=== PATIENT | female | born 1955 | race Caucasian/White ===

== ENCOUNTER → 2016-12-05 | Day surgery (SDC) | payer MEDICARE ==
[~2016-12-05] VITALS: Ht 157.5 cm; Wt 50.8 kg
[~2016-12-05] MED LIST: ASPI1TAB PO; CALC1CAP PO; CHILLIQ10 PO; CIPRODEX OTIC SUSP 7.5ML As Ordered ONE; CIPRODEX OTIC SUSP 7.5ML XX ONE; CORT10TA PO; FAMO40TA3 PO; HYDR12.55 PO; IPRASOL4 IN; KPHOS50TA PO; LEVO50TA5 PO; LEVO88TA3 PO; LIDOCAINE 2% INJ 100 MG/5 ML SDV (FOR ANES.) As Ordered ONE; LR 1,000 ML IV SCH; MIDAZOLAM INJ 2 MG/2 ML VIAL (J2250) As Ordered ONE; NORCO, ANEXSIA 5/325MG TABLET (HYDROcodone/ACETAMINOPHEN) PO PRN; OMEP20CA3 PO; ONDANSETRON 4MG/2ML VIAL (J2405) IV PRN; PAME25CA PO; PARO10SS GT; PEG1POW PO; PROPOFOL 200 MG/20 ML VIAL As Ordered ONE; REGL10TA6 PO; ROCA0.25 PO; SYNT125T PEG; TIOT18INH INH; [UNRECOGNIZED DRUG - OTHER] PO; fentaNYL 100 MCG/2 ML INJECTION (J3010) As Ordered ONE
[2016-12-05 17:25] VITALS: BP 100/63
--- NOTE | 2016-12-12 12:24 | RO ---
DATE OF PROCEDURE: 12/05/2016 PREPROCEDURE DIAGNOSIS: Prolonged retention of the tympanostomy tubes. POSTPROCEDURE DIAGNOSIS: Prolonged retention of the tympanostomy tubes. PROCEDURE: Removal of the tympanostomy tubes and bilateral Gelfoam myringoplasty. SURGEON: Dr. Arun Jerome PUMP SERVICER HELPER: ANESTHESIA: General. CLINICAL PREAMBLE: This 61-year-old woman has had tympanostomy tubes placed for hyperbaric oxygen treatment. She has completed her hyperbaric oxygen treatment. She no longer required the use of the tympanostomy tubes. The tubes remained in situ. Management options, including surgery as listed above, had been discussed. The patient understood and consented to the procedure. DESCRIPTION OF PROCEDURE: The patient was identified in preoperative holding and brought to the operating room in stable condition. In supine position on the operating room table, the patient received general anesthesia followed by ventilation via the existing tracheostomy stoma. The patient was turned to the left side to expose the right ear. Ear speculum was inserted. Cerumen was debrided. The tympanostomy tube was visualized and found to be in situ. This was removed under binocular magnification. Upon removal of the tympanostomy tube the edge of the perforation was freshened using curved pick. Gelfoam pieces soaked in Ciprodex solution were then placed into the middle ear cleft. A piece of Gelfoam was then laid over the tympanic membrane perforation. Additional Gelfoam pieces soaked with the Ciprodex were then used to fill the external auditory canal as well. A cotton ball was used to occlude the distal end of the canal. The same procedure was then carried out to remove the left tympanostomy tube as well as performing a left Gelfoam myringoplasty as well. At the end of the procedure, sponge and instrument counts were correct. No complications were encountered. Estimated blood loss was less than 1 mL. General anesthesia was reversed and the patient was awakened and taken to the recovery room in stable condition. KERMIT
== END | disposition home or self-care (01) ==
LOC: M SDC 12:11
PROVIDERS: ATTEND Otolaryngology
DX: H72.93 Unspecified perforation of tympanic membrane, bilateral (principal); H74.8X3 Other specified disorders of middle ear and mastoid, bilateral; E03.9 Hypothyroidism, unspecified; Z92.21 Personal history of antineoplastic chemotherapy; Z92.3 Personal history of irradiation; K44.9 Diaphragmatic hernia without obstruction or gangrene; Z85.819 Personal history of malignant neoplasm of unspecified site of lip, oral cavity, and pharynx; K90.49 Malabsorption due to intolerance, not elsewhere classified; K21.9 Gastro-esophageal reflux disease without esophagitis; T88.4XXD Failed or difficult intubation, subsequent encounter; R29.898 Other symptoms and signs involving the musculoskeletal system; M54.2 Cervicalgia; F41.9 Anxiety disorder, unspecified; Z78.0 Asymptomatic menopausal state; J44.9 Chronic obstructive pulmonary disease, unspecified; Z87.891 Personal history of nicotine dependence; Z79.899 Other long term (current) drug therapy; Z79.82 Long term (current) use of aspirin
CPT/HCPCS: 69610; J2250; J3010

== ENCOUNTER → 2017-02-14 | Outpatient (REF) | payer MEDICARE ==
[~2017-02-14] MED LIST changes: -CIPRODEX OTIC SUSP 7.5ML As Ordered ONE; -CIPRODEX OTIC SUSP 7.5ML XX ONE; -LIDOCAINE 2% INJ 100 MG/5 ML SDV (FOR ANES.) As Ordered ONE; -LR 1,000 ML IV SCH; -MIDAZOLAM INJ 2 MG/2 ML VIAL (J2250) As Ordered ONE; -NORCO, ANEXSIA 5/325MG TABLET (HYDROcodone/ACETAMINOPHEN) PO PRN; -ONDANSETRON 4MG/2ML VIAL (J2405) IV PRN; -PROPOFOL 200 MG/20 ML VIAL As Ordered ONE; -fentaNYL 100 MCG/2 ML INJECTION (J3010) As Ordered ONE
[2017-02-14 13:36] LABS: PERCENT SATURATION 2.9 % (13.2-37.4)
== END ==
LOC: M LAB REF 12:39
PROVIDERS: ATTEND Internal Medicine Medical Oncology
DX: C32.9 Malignant neoplasm of larynx, unspecified (principal); C56.9 Malignant neoplasm of unspecified ovary

== ENCOUNTER → 2017-05-29 | Outpatient (REF) | payer MEDICARE ==
[~2017-05-29] MED LIST changes: +CALC1250 GT; +CALC1SOL GT; +D3 M1CAP2 PO; +FERR220E2 GT; +JUVEPOW8 PO; +MIRA3350 GT; +NEXI1CAP4 GT; +SERT50TA GT; +TRAM50TA2 PO; +TYLE325C GT; +VITA500C10 GT; +VITASPR GT; +[UNRECOGNIZED DRUG - CODE] GT; -[UNRECOGNIZED DRUG - OTHER] PO
[2017-05-29 14:38] LABS: PERCENT SATURATION 14.6 % (13.2-37.4)
[2017-05-30 10:36] LABS: CA 125 45.2 U/ML (<30.2)
== END ==
LOC: M LAB REF 13:17
PROVIDERS: ATTEND Internal Medicine Medical Oncology
DX: C56.9 Malignant neoplasm of unspecified ovary (principal)

== ENCOUNTER 2017-06-11 10:40 | Outpatient (CLI) | payer MEDICARE ==
[~2017-06-11] VITALS: Ht 156.2 cm; Wt 48.1 kg
[~2017-06-11 10:40] MED LIST changes: -CALC1250 GT; -CALC1SOL GT; -FERR220E2 GT; -JUVEPOW8 PO; -MIRA3350 GT; -NEXI1CAP4 GT; -SERT50TA GT; -TRAM50TA2 PO; -TYLE325C GT; -VITA500C10 GT; -VITASPR GT; -[UNRECOGNIZED DRUG - CODE] GT
[2017-06-11] MEDS ORDERED: ZOLEDRONIC ACID 5 MG in APPROPRIATE DILUENT 1 EA IV ONE (11:00)
[2017-06-11] MEDS ORDERED: TYLE325C GT (12:21)
[2017-06-11] MEDS ORDERED: VITA500C10 GT (12:21)
[2017-06-11] MEDS ORDERED: MIRA3350 GT (12:21)
[2017-06-11] MEDS ORDERED: NEXI1CAP4 GT (12:21)
[2017-06-11] MEDS ORDERED: CALC1SOL GT (12:21)
[2017-06-11] MEDS ORDERED: SERT50TA GT (12:21)
[2017-06-11] MEDS ORDERED: CALC1250 GT (12:21)
[2017-06-11] MEDS ORDERED: TRAM50TA2 PO (12:21)
[2017-06-11] MEDS ORDERED: JUVEPOW8 PO (12:21)
[2017-06-11] MEDS ORDERED: VITASPR GT (12:21)
[2017-06-11] MEDS ORDERED: FERR220E2 GT (12:21)
[2017-06-11] MEDS ORDERED: [UNRECOGNIZED DRUG - CODE] GT (12:21)
== END 2017-06-11 12:00 | disposition home or self-care (01) ==
LOC: M INFU 10:40
PROVIDERS: ATTEND Internal Medicine Endocrinology, Diabetes & Metabolism
DX: M81.0 Age-related osteoporosis without current pathological fracture (principal); Z79.899 Other long term (current) drug therapy; Z79.82 Long term (current) use of aspirin; Z79.891 Long term (current) use of opiate analgesic
CPT/HCPCS: 96365; J3489

== ENCOUNTER → 2017-10-15 | Outpatient (REF) | payer MEDICARE ==
[~2017-10-15] MED LIST changes: +CALC1250 PO; +CALC1SOL PO; +FERR220E2 PO; +HYDR5TAB59 PO; +JUVEPOW8 PO; +LEVO100T5 PO; +MIRA3350 GT; +NEXI1CAP4 GT; +SERT50TA GT; +SUCR1SS PO; +TRAM50TA2 PO; +TYLE325C GT; +VITA500C10 GT; +VITASPR PO; +ZEGE20CA4 PO; +[UNRECOGNIZED DRUG - CODE] GT
== END ==
LOC: M LAB REF 12:12
PROVIDERS: ATTEND Internal Medicine Medical Oncology
DX: C32.9 Malignant neoplasm of larynx, unspecified (principal); C79.60 Secondary malignant neoplasm of unspecified ovary

== ENCOUNTER 2017-10-18 09:15 | Emergency (ER) | payer MEDICARE ==
[~2017-10-18] VITALS: Ht 160 cm; Wt 54.3 kg
[~2017-10-18 09:15] MED LIST changes: -HYDR5TAB59 PO; -LEVO100T5 PO; -SUCR1SS PO; -ZEGE20CA4 PO
[2017-10-18] MEDS ORDERED: ONDANSETRON 4MG/2ML VIAL (J2405) As Ordered ONE (09:31)
[2017-10-18] MEDS ORDERED: HYDR5TAB59 PO (09:37)
[2017-10-18] MEDS ORDERED: LEVO100T5 PO (09:37)
[2017-10-18] MEDS ORDERED: SUCR1SS PO (09:37)
[2017-10-18] MEDS ORDERED: ZEGE20CA4 PO (09:37)
[2017-10-18] MEDS ORDERED: ONDANSETRON 4MG/2ML VIAL (J2405) IV ONE (10:30)
[2017-10-18] MEDS ORDERED: MORPHINE 4 MG/ML 1ML SYRINGE IV ONE ×2 (10:30→16:45)
[2017-10-18] MEDS ORDERED: NS 1,000 ML IV ONE (10:30)
[2017-10-18 10:35] LABS: BASO % 0.3 % (0.0-1.0); EOS # 0.1 10^3/uL (0.0-0.50); EOS % 0.5 % (0.0-3.0); IMMATURE GRANULOCYTE % 0.5 % (0-0); LYMPH # 0.7 10^3/uL (1.5-4.5); LYMPH % 4.6 % (24.0-44.0); MEAN CORPUSCULAR HEMOGLOBIN 30.6 pg (27.0-33.0); MEAN CORPUSCULAR VOLUME 95.8 fl (80.0-96.0); MONO # 1.1 10^3/uL (0.0-0.8); MONO % 7.1 % (0.0-5.0); PLATELET COUNT, AUTOMATED 327 10^3/uL (150-450); RED CELL DISTRIBUTION WIDTH 14.2 % (11.5-14.5); WHITE BLOOD COUNT 14.9 10^3/uL (4.0-10.0)
[2017-10-18 10:56] LABS: ERYTHROCYTE SEDIMENTATION RATE 68 mm/hr (0-30)
[2017-10-18 11:07] LABS: ALBUMIN 2.9 GM/DL (3.2-5.2); ALBUMIN/GLOBULIN RATIO 0.59 (1.00-1.93); ALKALINE PHOSPHATASE 80 U/L (45-117); ALT/SGPT 29 U/L (12-78); ANION GAP 7 MEQ/L (8-16); AST/SGOT 21 U/L (7-37); BILIRUBIN,DIRECT 0.1 MG/DL (0.0-0.2); BILIRUBIN,TOTAL 0.4 MG/DL (0.2-1.0); BLOOD UREA NITROGEN 16 MG/DL (7-18); CARBON DIOXIDE LEVEL 32 MEQ/L (21-32); CHLORIDE LEVEL 96 MEQ/L (98-107); CREATININE FOR GFR 0.82 MG/DL (0.55-1.02); GLOMERULAR FILTRATION RATE > 60.0 (>45); GLUCOSE, FASTING 93 MG/DL (80-110); POTASSIUM SERUM 3.6 MEQ/L (3.5-5.1); SODIUM LEVEL 135 MEQ/L (136-145); TOTAL PROTEIN 7.8 GM/DL (6.4-8.2)
[2017-10-18] MEDS ORDERED: ISOVUE-370 76% 100ML VIAL (Q9967) As Ordered ONE (11:13)
--- NOTE | 2017-10-18 12:45 | REP ---
CT NECK WITH CONTRAST: HISTORY: Right neck mass. CONTRAST: Isovue-370, 100 mL. COMPARISON: 08/25/2015 The patient is status post total laryngectomy and bilateral neck dissection and thyroidectomy. A tracheostomy defect is present. A large irregular mass is present at the level of the pharynx and larynx. Soft tissue density is present in the carotid spaces. This may represent extension of the soft tissue mass into the carotid spaces. This may represent extension of the soft tissue mass into the carotid spaces or scar tissue. There is anterior extension into the subcutaneous tissues. A large anterior soft tissue component is present in the anterior subcutaneous tissues . This extends from the level of the inferior margin of the mandible inferior to the anterior chest wall to the level of the tracheostomy superior and anterior to the right clavicle . There is no lymphadenopathy. There are nonacute compression fractures of the C4 through C6 vertebral bodies with mild to moderate height loss. The vertebral bodies are sclerotic and heterogeneous in density consistent with metastases. There is no subluxation. There is loss of the normal lordotic curve. Parenchymal densities are present in the right lung apex. The sinuses are clear. IMPRESSION: 1. The patient is status post total laryngectomy, bilateral neck dissection, thyroidectomy and tracheostomy. A large soft tissue mass is present at the level of the pharynx and larynx. There is anterior extension into the anterior subcutaneous tissue. This extends from the level of the inferior margin of the mandible along the anterior chest wall superior and anterior to the right clavicle. There is marked narrowing of the airway. 2. There are pathologic fractures of the C4 through C6 vertebral bodies. There is mild to moderate height loss. There is no subluxation. Signed by Joss Zimmer MD 10/18/2017 01:55 P
--- NOTE | 2017-10-18 13:18 | REP ---
CT CHEST WITH CONTRAST: HISTORY: Right neck mass. CONTRAST: Isovue-370, 75 mL COMPARISON: 06/03/2014 The lungs are hyperinflated. Scarring is present in the lung apices. A calcified granuloma is present in the right lower lobe. There is no pleural effusion. The heart is normal in size. Small lymph nodes less than 1 cm in size are present in the mediastinum. Atherosclerotic calcification is present in the thoracic aorta. A soft tissue mass is present in the midline anterior subcutaneous tissue of the lower neck. There is inferior extension along the anterior chest wall superior and anterior to the right clavicle. A tracheostomy is present. Degenerative change is present in the thoracic spine. A feeding tube is present in the stomach entering through the anterior abdominal wall. IMPRESSION: 1. COPD. 2. There is an anterior lower neck and right anterior chest wall mass as described above consistent with recurrent tumor. Signed by Joss Zimmer MD 10/18/2017 01:49 P
[2017-10-18] MEDS ORDERED: MORPHINE 4 MG/ML 1ML SYRINGE IM ONE (16:30)
[2017-10-18] MEDS ORDERED: PERCOCET 5MG/325MG TAB PO ONE (16:30)
[2017-10-18 16:55] VITALS: BP 99/58
== END 2017-10-18 16:58 | disposition left against medical advice (07) ==
LOC: M ED 09:15
DX: M84.58XA Pathological fracture in neoplastic disease, other specified site, initial encounter for fracture (principal); R22.1 Localized swelling, mass and lump, neck; I10 Essential (primary) hypertension; Z85.43 Personal history of malignant neoplasm of ovary; Z90.02 Acquired absence of larynx; Z90.89 Acquired absence of other organs; E07.9 Disorder of thyroid, unspecified; Z93.0 Tracheostomy status; J44.9 Chronic obstructive pulmonary disease, unspecified; Z93.1 Gastrostomy status; F41.9 Anxiety disorder, unspecified; G47.33 Obstructive sleep apnea (adult) (pediatric); Z87.891 Personal history of nicotine dependence; Z79.899 Other long term (current) drug therapy; Z79.82 Long term (current) use of aspirin
CPT/HCPCS: 70491; 71260; 80048; 80076; 83605; 85025; 85652; 86140; 96374; 96375; 96376; 99284; J2405; Q9967

== ENCOUNTER 2018-07-06 14:24 | Outpatient (CLI) | payer MEDICARE ==
[2018-07-06] MEDS: ZOLEDRONIC ACID 5 MG in APPROPRIATE DILUENT 1 EA IV (14:47)
== END 2018-07-06 15:25 | disposition home or self-care (01) ==
LOC: M INFU 14:24
DX: M81.0 Age-related osteoporosis without current pathological fracture (principal); Z79.82 Long term (current) use of aspirin; Z79.899 Other long term (current) drug therapy
CPT/HCPCS: J3489

== ENCOUNTER → 2018-12-15 | Outpatient (CLI) | payer MEDICARE ==
[~2018-12-15] MED LIST changes: +BUPR75TA5 PO; -FERR220E2 PO; +FERR220L PO; +HYDR5TAB59 PO; +IPRA0.00 IN; -IPRASOL4 IN; +LEVO100T5 PO; +SUCR1SS PO; +ZEGE20CA4 PO
--- NOTE | 2018-12-15 18:50 | REP ---
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 Status post chemo and radiation therapy. Completed September 2010. and 2014 prompted laryngectomy and diverting pharyngotomy and esophagectomy. There is also a prior history of ovarian carcinoma. Status post cervical spine surgery stabilization for osteomyelitis of the cervical spine C4-C6 fusion. [facility] CT study November 03, 2018 is reported as showing subcarinal and right hilar lymph nodes measuring up to 1.8 cm in greatest diameter. Comparisons: Comparison PET-CT study July 20, 2015. TECHNIQUE: 54 minutes following the intravenous injection of a 7.9 mCi dose of F-18 FDG, three-dimensional PET scintigraphy is acquired from the skull base to the proximal thighs. Triplanar noncontrast CT scanning is acquired through the same anatomic range for attenuation correction, and image registration with scan parameters optimized to minimize radiation exposure to the patient. PET scintigraphy and CT datasets were fused and displayed on a workstation with multiplanar and projection display capability. PET/CT Findings: There is fairly prominent normal variant skeletal muscle uptake about the head and neck soft tissues. There is mildly hypermetabolic uptake surrounding the hypopharynx in the neck with maximum standard uptake value 5.5. There is no evidence of mass effect. No adenopathy is seen. No abnormal hypermetabolic uptake is seen within the thorax. There is mildly hypermetabolic uptake associated with right posterior 11th and 10th rib fractures, which appear to be recent. Maximum standard uptake value is 4.1 and 4.4 in the tenth and eleventh ribs respectively. There are sclerotic changes consistent with healing fractures involving the anterior ends of the 5th through 9th lateral rib ends as well. No abnormal FDG accumulation is seen in these anterolateral healed rib fractures. No abnormal hypermetabolic uptake is seen within the liver. No adrenal lesion is observed. A feeding gastrostomy tube is noted. No abnormal abdominal hypermetabolic uptake is seen. A focus of increased FDG accumulation is seen in the anus. This was observed on multiple prior PET-CTs including 2014 and 2013 prior studies and is unchanged. No pulmonary nodule is seen. No abnormal FDG uptake is seen within the subcarinal or right hilar or left hilar region. Impression: Mildly hypermetabolic uptake in the hypopharynx which may be postsurgical change. No mass effect or adenopathy is seen. Multiple right-sided rib fractures noted including two recent posterior rib fractures on the right. No abnormal hypermetabolic uptake is seen in the chest. Electronically Signed by Marcos Fisher MD 12/16/2018 08:03 A
== END ==
LOC: M PLARAD 08:15
PROVIDERS: ATTEND Internal Medicine Hematology & Oncology
DX: R91.1 Solitary pulmonary nodule (principal); C32.9 Malignant neoplasm of larynx, unspecified; S22.41XA Multiple fractures of ribs, right side, initial encounter for closed fracture; X58.XXXA Exposure to other specified factors, initial encounter; Y92.9 Unspecified place or not applicable; Z93.1 Gastrostomy status
CPT/HCPCS: 78815; A9552

== ENCOUNTER 2019-01-29 16:29 | Inpatient (IN) | payer MEDICARE ==
[~2019-01-29] VITALS: Ht 154.9 cm; Wt 52.0 kg
[~2019-01-29 16:29] MED LIST changes: -VITA500C10 GT; +VITA500C10 PO
[2019-01-29 22:15] VITALS: BP 126/75
[2019-01-29] MEDS ORDERED: ONDANSETRON 4MG/2ML VIAL (J2405) IV PRN (23:00)
[2019-01-29] MEDS ORDERED: GLUCOSE 4 GM CHEW TABLET PO PRN (23:15)
[2019-01-29] MEDS ORDERED: GLUCAGON FOR INJ 1 MG VIAL (J1610) SC PRN (23:15)
[2019-01-29] MEDS ORDERED: IPRATROPIUM 0.5MG/ALBUTEROL 2.5MG INH SOL UD 3ML (DUONEB)(J7620) NEB PRN (23:15)
[2019-01-29] MEDS ORDERED: DEXTROSE 50% 50 ML SYRINGE IV PRN (23:15)
[2019-01-30 00:01] LABS: HEMATOCRIT 33.3 % (36.0-47.0); HEMOGLOBIN 10.3 g/dl (12.0-15.5); MEAN CORPUSCULAR HEMOGLOBIN 27.1 pg (27.0-33.0); MEAN CORPUSCULAR HGB CONC 30.9 g/dl (32.0-36.5); MEAN CORPUSCULAR VOLUME 87.6 fl (80.0-96.0); PLATELET COUNT, AUTOMATED 278 10^3/uL (150-450); WHITE BLOOD COUNT 9.4 10^3/uL (4.0-10.0)
[2019-01-30 00:15] LABS: INR 1.44; PROTHROMBIN TIME 17.8 SECONDS (12.1-14.4)
[2019-01-30 00:16] LABS: PARTIAL THROMBOPLASTIN TIME 28.9 SECONDS (25.4-37.6)
[2019-01-30] MEDS ORDERED: CYCL10TA PO (00:16)
[2019-01-30] MEDS ORDERED: CALC1CAP31 PO (00:16)
[2019-01-30] MEDS ORDERED: ACET1TAB55 PO (00:29)
[2019-01-30] MEDS ORDERED: CALC500C16 PO (00:29)
[2019-01-30] MEDS ORDERED: AMIT50TA PO (00:29)
[2019-01-30] MEDS ORDERED: OMEP20CA3 PO (00:37)
[2019-01-30] MEDS ORDERED: ISOVUE-370 76% 125ML VIAL (Q9967 PER ML) As Ordered ONE (00:38)
[2019-01-30 00:41] LABS: ERYTHROCYTE SEDIMENTATION RATE 65 mm/hr (0-30)
[2019-01-30] MEDS ORDERED: MIRA3350 PO (00:43)
[2019-01-30] MEDS ORDERED: VITA100066 PO (00:43)
[2019-01-30] MEDS ORDERED: SUCR1TAB56 PO (00:47)
[2019-01-30] MEDS ORDERED: [UNRECOGNIZED DRUG - CODE] PO (00:47)
--- NOTE | 2019-01-30 00:47 | HPE ---
DATE OF ADMISSION: 01/29/2019 The patient was transferred from [facility] for neurosurgical as well as hematology/oncology evaluation with back pain, hip pain radiating into the legs, questionable lower extremity weakness, for evaluation for possible osteomyelitis, stress fracture versus possible metastasis (mets). HISTORY OF THE PRESENT ILLNESS: The patient is a 64-year-old female. She has significant past medical history of laryngeal cancer. She is status post chemo, radiation, surgery, status post trach now with a stoma, also percutaneous endoscopic gastrostomy (PEG), she takes orally. She had a skin graft as well as muscle harvested from her leg to create what appears to be a portion of the trachea; it is unclear what exactly was harvested and what was created. She also has ovarian cancer - status post oophorectomy. She has chronic obstructive pulmonary disease (COPD), asthma. She has a stoma, no longer trached; however, she is not on any oxygen at home. She has gastroesophageal reflux disease (GERD), hypothyroidism, depression, anxiety. She presented to the emergency room at [facility] with sacral back pain as well as bilateral hip pain radiating down the legs. The patient complained of difficulty getting out of bed. It is unclear whether or not her difficulty was due to weakness or due to the pain. However, at this point in time, her strength seems to be intact. She has no bowel or urinary incontinence, no saddle anesthesia. An MRI was completed at [facility], MRI of the pelvis as well as MRI of the L-spine. MRI of the pelvis showed L4-L5 disc herniation and edema in the bone marrow of the sacrum, some soft tissue swelling concerning for osteomyelitis versus stress fracture versus mets. MRI of the L-spine showed a herniated disc at L4-L5, edema of the presacral area, some soft tissue swelling with a concern for osteomyelitis versus stress fracture versus mets, and the patient is following with hematology/oncology, Dr. Rosario, at [facility]. Patient subsequently transferred for orthopedic surgery as well as hematology/oncology evaluation. She was started on Decadron. Again, she was initially at [facility], transferred to [facility] and subsequently transferred to [facility] because her oncologist practices at [facility], Dr. Rosario. She was started on vancomycin and Zosyn empirically for osteomyelitis. She was started on Decadron empirically in case this is mets with compressive symptoms. Currently, the patient examined at bedside. She denies any chest pain, cough, shortness of breath, fevers, chills, urinary symptoms, diarrhea, constipation. Her back pain has since improved. She has no point tenderness in the back. Power and sensation in the lower extremities appear to be intact. PAST MEDICAL HISTORY: See history of the present illness. PAST SURGICAL HISTORY: She had cervical spine surgery. She had oophorectomy. She had skin graft as well as harvest of the muscles of the leg. She had laryngectomy. Status post chemo and radiation. She has a PEG in place. ALLERGIES: No known drug allergies. HOME MEDICATIONS: As per chart, includes DuoNebs, omeprazole, Hickory, Synthroid, Wellbutrin, hydrocortisone cream - the reason unclear. SOCIAL HISTORY: She is a former smoker. Denies alcohol or illicit drug use. FAMILY HISTORY: Noncontributory. REVIEW OF SYSTEMS: A 12-point review of systems was completed, all of which were negative except those listed in the history of the present illness. VITAL SIGNS ON ADMISSION: She is afebrile. Blood pressure 126/75, respiratory rate of 18, heart rate of 67. She was initially saturating in the 90s on room air, subsequently desaturated to the 80s and was placed on five liters nasal cannula. PHYSICAL EXAM: General: She is well nourished, in no apparent distress. Head is normocephalic, atraumatic Eyes: Extraocular movements are intact. Pupils equal, round, reactive to light. Neck: There is a deviated trachea, which appears to have been created from grafted tissue, a stoma in place, trach has been removed. Lungs: Clear to auscultation. No crackles, wheezes. Cardiovascular: Regular rate and rhythm. Normal S1, S2. Abdomen: The abdomen is soft. PEG site is clean, clear. Extremities: No pitting edema. No calf tenderness. Skin: Intact. No rashes, lesions, or breakdown. Neurological: Alert and oriented times three. No focal deficits. Sensation and power appear to be intact. LABS AND IMAGING: Completed at outside facility. Sodium of 136, BUN and creatinine of 25 over 0.9, platelet count of 255, white count 5, hemoglobin 11. Imaging performed at an outside facility: MRI of the pelvis shows disc herniation at L4-L5, edema in the sacrum with marrow edema from soft tissue swelling, edema from the left to the right. Differential includes osteomyelitis versus stress fracture versus possible mets. MRI of the lumbar spine shows disc herniation L4-L5, as well as presacral swelling. CT of the abdomen and pelvis shows nonobstructing calculus and a full bladder. Chest x-ray showed b/l small effusions. ASSESSMENT AND PLAN: Hip pain, back pain, questionable lower extremity weakness. This is possibly more than likely secondary to pain and my neurological exam shows power and sensation intact. Differential includes osteomyelitis versus mass concerning for mets versus stress fracture. Will get orthopedic (ortho) consult. Will get bone scan to assess for osteomyelitis. The MRI was unable to definitively diagnose osteomyelitis. Will get ESR, CRP, blood cultures. Will continue vancomycin, Zosyn as per outside facility. Will get orthopedic consult, Dr. Holder. Patient may likely need bone biopsy for definitive diagnosis of presacral mass, soft tissue swelling. Will continue Decadron, insulin sliding scale while on high dose steroids. Please get hematology/oncology evaluation in the morning. Will continue Hickory as needed for pain. For hypoxia, the etiology is unclear. Will get a CT angio of the chest to rule out any malignancy or infectious process that could have been a possible spread for osteomyelitis. Will also get a urinalysis (UA). Will also rule out pulmonary embolism (PE). Will continue oxygen as needed. History of laryngeal cancer, status post trach which was removed, now with stoma stoma, PEG, patient now takes orally. Continue oxygen as needed. Keep oxygen saturation greater than 94%. Will place the patient on DuoNebs. She is already on Decadron. Acid reflux. Continue omeprazole. DuoNebs standing. Hypothyroidism. Continue Synthroid. Mood disorder. Continue Wellbutrin. The patient also uses viscous lidocaine and hydrocortisone for which she states is to dilate her throat, the reason unclear, which she takes orally. Will continue this. Supportive: Deep vein thrombosis (DVT) prophylaxis. Heparin subcu. Gastrointestinal (GI) prophylaxis. The patient is already on omeprazole. The patient is to be seen by the personnel psychologist/oncologist as well as the orthopedic surgeon in the morning. Will get basic labs, CBC, BMP, TSH, ESR, CRP, blood cultures, magnesium, troponin, lactate. MTDD
[2019-01-30 01:00] LABS: ALBUMIN 2.5 GM/DL (3.2-5.2); ALT/SGPT 39 U/L (12-78); BILIRUBIN,TOTAL 0.3 MG/DL (0.2-1.0); BLOOD UREA NITROGEN 20 MG/DL (7-18); CARBON DIOXIDE LEVEL 22 MEQ/L (21-32); CHLORIDE LEVEL 117 MEQ/L (98-107); CREATININE FOR GFR 1.03 MG/DL (0.55-1.30); GLOMERULAR FILTRATION RATE 57.3 (>45); GLUCOSE, FASTING 109 MG/DL (70-100); POTASSIUM SERUM 4.1 MEQ/L (3.5-5.1); SODIUM LEVEL 145 MEQ/L (136-145); THYROID STIMULATING HORMONE 0.136 uIU/ML (0.358-3.740); TROPONIN I < 0.02 NG/ML (< 0.10)
[2019-01-30] MEDS ORDERED: HYDR1SOL PO ×3 (01:01→01:09)
[2019-01-30] MEDS: MORPHINE 4 MG/ML 1ML VIAL/SYRINGE (J2270) IV PRN ×6 (01:04→23:31)
[2019-01-30] MEDS ORDERED: IPRA0.00 NEB (01:05)
[2019-01-30] MEDS: HumaLOG INSULIN (NovoLOG) PER UNIT SC SCH ×5 (01:05→23:59)
[2019-01-30] MEDS ORDERED: HYDR1CRE89 TOP (01:15)
[2019-01-30] MEDS ORDERED: LIDO2JELLY TOP (01:18)
[2019-01-30] MEDS ORDERED: NS 1,000 ML IV SCH (01:30)
[2019-01-30 02:00] VITALS: BP 152/81
[2019-01-30] MEDS: PIPERACILLIN/TAZOBACTAM SOD 3.375 GM in D5W MINI-BAG PLUS 50 ML IV SCH ×3 (02:14→18:35)
[2019-01-30] MEDS: dexameTHASONE 4 MG/ML 1ML VIAL (J1100) IV SCH ×3 (02:15→18:21)
[2019-01-30] MEDS ORDERED: MIRALAX *UNIT DOSE* 17GM PACKET PO PRN (03:00)
--- NOTE | 2019-01-30 03:09 | REPVR ---
EXAM: CT Angiography Chest With Contrast EXAM DATE/TIME: 01/29/2019 11:34 PM CLINICAL HISTORY: 64 years old, female; Signs and symptoms; Shortness of breath; Additional info: Hypoxia TECHNIQUE: Axial computed tomographic angiography images of the chest with intravenous contrast using CT angiography protocol. All CT scans at this facility use at least one of these dose optimization techniques: automated exposure control; mA and/or kV adjustment per patient size (includes targeted exams where dose is matched to clinical indication); or iterative reconstruction. Coronal and sagittal reformatted images were created and reviewed. MIP reconstructed images were created and reviewed. CONTRAST: Contrast Material: 75 ml of iso; Contrast Route: ac COMPARISON: CT ANGIO CHEST - OUTSIDE PRIOR 11/03/2018 5:05 PM FINDINGS: Pulmonary arteries: Normal. No pulmonary emboli. Aorta: Normal. No aortic aneurysm. No aortic dissection. Lungs: Large fecal loading in the visualized lungs. Bibasilar consolidations likely atelectasis.Mild bilateral ground glass densities likely edema. Pleural space: Small bilateral pleural effusions. Heart: Mild coronary calcifications. Gallbladder and bile ducts: Distended gallbladder without any gallstones. Kidneys and ureters: Simple cyst in the right kidney measuring 12 mm. Stomach and bowel: PEG tube in place. Atherosclerosis. Lymph nodes: Unremarkable. No enlarged lymph nodes. Bones/joints: Old healed right posterior 11th and 10th ribs fractures. Degenerative changes. Old compression fracture of T8 similar to previous study. Posterior disc osteophyte formation at T8/T9 causing mild central spinal canal stenosis. Soft tissues: Unremarkable. IMPRESSION: 1. No evidence of pulmonary embolism. 2. Small bilateral pleural effusions, bibasilar consolidations likely atelectasis versus pneumonia and diffuse edema of the lungs. Electronically signed by: Sherri Joiner On 01/30/2019 03:08:55 AM
[2019-01-30 03:11] LABS: VANCOMYCIN LEVEL TROUGH 14.4 UG/ML (10.0-20.0)
--- NOTE | 2019-01-30 03:24 | PHACANCOPD ---
PHARMACY VANCOMYCIN DOSING Pt Demographics Demographics Patient Age:64 , Weight:52.000 , Gender: female Adjusted Body Weight Date: 01/30/19, Adjusted Body Weight: Kg Events Past 24 Hours Events Past 24 Hours: NO: Dialysis, Diuretic Therapy, Change in CrCl, Fever, Elevation in WBC, Pending Diagnostics, Pending Procedures, Other Vancomycin Vancomycin Target Ranges: 15-20 mcg/ml Vancomycin Load Y/N: No Load Dose Date Time Vancomycin Load Dose: Date: Time: Vancomycin Dose Date: 01/30/19. Current Vancomycin Dose: [1000mg q12h] Intermittent Dosing?: No Labs Labs Item Value Date Time White Blood Count 9.4 10^3/uL 01/29/194 Glomerular Filtration Rate 57.3 01/29/194 Creatinine 1.03 MG/DL 01/29/192353 Blood Urea Nitrogen 20 MG/DL H 01/29/19 235 Vancomycin Level Trough 14.4 UG/ML 01/29/19 235 Vital Signs Label Value Date Time Patient Temperature 98.1 degrees F 01/30/19 0200 Temperature Source Temporal 01/30/19 0200 Micro Microbiology 01/29/19 Blood Culture, Received Pending Creatinine Clearance Date:01/30/19. Creatinine Clearance: [~44]. Pending Labs Trough 03-16 @1500 Assessment and Plan Maintaining Current Dose?: Yes Reason for dose change: No Dose Change Pharmacist Note Pharmacist Note Date: 01/30/19. Pharmacist note:Patient started on vancomycin at [facility]. Will monitor and make adjustments as needed. DWAYNE FORD [facility]ARMAC[facility] Jan 30, 2019 03:24
[2019-01-30] MEDS: VANCOMYCIN HCL 1,000 MG, VIAL MATE ADAPTER 1 EACH in D5W 250 ML IV SCH ×2 (04:31→16:08)
[2019-01-30] MEDS: AMITRIPTYLINE 50 MG TAB PO SCH ×2 (04:32→20:53)
[2019-01-30] MEDS: LEVOTHYROXINE 100MCG TABLET (0.1MG) PO SCH (05:46)
[2019-01-30] MEDS: HEPARIN SOD (PORCINE) 5000 UNITS/ML VIAL SC SCH ×3 (05:46→20:53)
[2019-01-30 06:00] VITALS: BP 168/93
[2019-01-30 07:07] LABS: HEMATOCRIT 34.7 % (36.0-47.0); HEMOGLOBIN 10.3 g/dl (12.0-15.5); MEAN CORPUSCULAR HEMOGLOBIN 26.5 pg (27.0-33.0); MEAN CORPUSCULAR HGB CONC 29.7 g/dl (32.0-36.5); MEAN CORPUSCULAR VOLUME 89.2 fl (80.0-96.0); PLATELET COUNT, AUTOMATED 286 10^3/uL (150-450); RED BLOOD COUNT 3.89 10^6/uL (4.00-5.40); WHITE BLOOD COUNT 10.3 10^3/uL (4.0-10.0)
[2019-01-30 07:33] LABS: BLOOD UREA NITROGEN 21 MG/DL (7-18); CALCIUM LEVEL 6.4 MG/DL (8.8-10.2); CARBON DIOXIDE LEVEL 19 MEQ/L (21-32); CHLORIDE LEVEL 114 MEQ/L (98-107); CREATININE FOR GFR 0.95 MG/DL (0.55-1.30); GLOMERULAR FILTRATION RATE > 60.0 (>45); GLUCOSE, FASTING 108 MG/DL (70-100); SODIUM LEVEL 142 MEQ/L (136-145)
[2019-01-30] MEDS: CALCITRIOL 0.25 MCG CAP (S0169) PO SCH ×2 (09:00→09:14)
[2019-01-30] MEDS ORDERED: ASPIRIN 81 MG ENTERIC TAB PO SCH (09:00)
[2019-01-30] MEDS: ASCORBIC ACID 500 MG TAB PO SCH ×4 (09:00→16:08)
[2019-01-30] MEDS: SUCRALFATE 1 GM TAB PO SCH ×4 (09:13→20:53)
[2019-01-30] MEDS: OMEPRAZOLE 20 MG CAP PO SCH (09:13)
[2019-01-30] MEDS: VITAMIN D 1,000 INTERNATIONAL UNITS TABLET PO SCH (09:14)
[2019-01-30 10:00] VITALS: BP 91/57
[2019-01-30 10:05] VITALS: BP 110/90
[2019-01-30] MEDS: buPROPion 75 MG TAB PO SCH ×2 (10:11→20:52)
[2019-01-30 14:00] VITALS: BP 124/73
[2019-01-30 17:49] LABS: FREE T4 1.06 NG/DL (0.76-1.46)
[2019-01-30] MEDS ORDERED: POTASSIUM CHLORIDE 10 MEQ SR TABLET PO ONE (19:45)
[2019-01-30] MEDS ORDERED: POTASSIUM CHLORIDE 10% LIQ 20 MEQ/15 ML UDC PO ONE (19:45)
[2019-01-30 22:00] VITALS: BP 130/73
--- NOTE | 2019-01-30 23:14 | IPN ---
DATE: 01/30/2019 SUBJECTIVE: Patient seen and examined in the room today. Patient continues to complain about persistent bilateral hip pain and sacral pain. Patient also complaining about shooting pain radiating from the back to the lower extremities. Denied any loss of sensation of the lower extremities and pelvic area. Denied any fevers or chills. OBJECTIVE: VITAL SIGNS: Temperature is 98.3, pulse is 68, respirations 18, blood pressure is 168/93, pulse oximetry is 98% with 5 liters oxygen support. GENERAL: Patient is alert and awake, nonverbal. Communication is performed through writing. HEENT: Tracheal stoma noted in place. CARDIOVASCULAR: Positive S1, S2, regular rate. LUNGS: Clear to auscultation bilaterally. ABDOMEN: Percutaneous endoscopic gastrostomy (PEG) tube in place. Abdomen soft. MUSCULOSKELETAL: Patient was noted to have musculoskeletal deformity on the left upper chest and in the neck area. Tender to palpation on the lower back region. LABORATORY DATA: WBC 10.3, hemoglobin 10.3, hematocrit 34.7, platelet count is 286. Sodium 142, potassium 3, chloride 114, carbon dioxide 19, BUN 21, creatinine 0.95, GFR greater than 60, fasting glucose 108, calcium 6.4, magnesium 2. Free T4 is 1.06. CT angiogram of the chest demonstrated no evidence of pulmonary embolism (PE). Small bilateral pleural effusions, bibasilar consolidation, likely atelectasis versus pneumonia and diffuse edema of the lungs. ASSESSMENT AND PLAN: 1. Acute onset of bilateral hip pain and sacral pain with radiation to the lower extremities. Imaging was done previously in another facility. Findings suggestive of possible osteomyelitis, stress fracture versus possible metastasis. We are unfortunately unable to obtain the PET scan at this moment. Orthopedic team consulted. Patient did have (cut off) performed on 12/15/2018, and results are reviewed. Patient does have a history of osteomyelitis of the neck region, resulting in cervical spine surgery. 2. History of laryngeal cancer and ovarian cancer, status post chemoradiation therapy, status post tracheostomy, now with a stoma. Percutaneous endoscopic gastrostomy (PEG) tube in place. Patient had a skin graft and muscle harvesting for tracheal reconstruction. Patient also had an oophorectomy. Currently, patient is following with Dr. Cummins in the outpatient setting. 3. Hypothyroidism, on Synthroid. 4. Anxiety/depression, on Wellbutrin, amitriptyline. Continue to monitor. 5. Deep vein thrombosis (DVT) prophylaxis, on heparin.
[2019-01-31] MEDS: PIPERACILLIN/TAZOBACTAM SOD 3.375 GM in D5W MINI-BAG PLUS 50 ML IV SCH ×2 (02:44→10:12)
[2019-01-31] MEDS: dexameTHASONE 4 MG/ML 1ML VIAL (J1100) IV SCH ×3 (02:44→18:28)
[2019-01-31] MEDS: VANCOMYCIN HCL 1,000 MG, VIAL MATE ADAPTER 1 EACH in D5W 250 ML IV SCH ×2 (04:15→15:57)
[2019-01-31] MEDS: LEVOTHYROXINE 100MCG TABLET (0.1MG) PO SCH (05:02)
[2019-01-31] MEDS: HEPARIN SOD (PORCINE) 5000 UNITS/ML VIAL SC SCH ×3 (05:02→22:28)
[2019-01-31] MEDS: HumaLOG INSULIN (NovoLOG) PER UNIT SC SCH ×3 (05:12→19:00)
[2019-01-31 06:00] VITALS: BP 138/99
[2019-01-31] MEDS: MORPHINE 4 MG/ML 1ML VIAL/SYRINGE (J2270) IV PRN ×4 (06:35→20:35)
[2019-01-31 07:48] LABS: HEMATOCRIT 33.9 % (36.0-47.0); HEMOGLOBIN 10.5 g/dl (12.0-15.5); MEAN CORPUSCULAR HEMOGLOBIN 26.7 pg (27.0-33.0); MEAN CORPUSCULAR VOLUME 86.3 fl (80.0-96.0); PLATELET COUNT, AUTOMATED 343 10^3/uL (150-450); RED BLOOD COUNT 3.93 10^6/uL (4.00-5.40); WHITE BLOOD COUNT 8.7 10^3/uL (4.0-10.0)
[2019-01-31 08:22] LABS: BLOOD UREA NITROGEN 19 MG/DL (7-18); C REACTIVE PROTEIN QUANTITATIV 2.36 MG/DL (0.00-0.30); CALCIUM LEVEL 6.5 MG/DL (8.8-10.2); CARBON DIOXIDE LEVEL 23 MEQ/L (21-32); CHLORIDE LEVEL 113 MEQ/L (98-107); CREATININE FOR GFR 0.94 MG/DL (0.55-1.30); GLOMERULAR FILTRATION RATE > 60.0 (>45); GLUCOSE, FASTING 55 MG/DL (70-100); POTASSIUM SERUM 3.8 MEQ/L (3.5-5.1); SODIUM LEVEL 142 MEQ/L (136-145)
[2019-01-31] MEDS: CALCITRIOL 0.25 MCG CAP (S0169) PO SCH (09:00)
[2019-01-31] MEDS: ASPIRIN 81 MG CHEW TABLET PO SCH (09:41)
[2019-01-31] MEDS: SUCRALFATE 1 GM TAB PO SCH ×4 (09:41→20:19)
[2019-01-31] MEDS: buPROPion 75 MG TAB PO SCH ×2 (09:41→20:19)
[2019-01-31] MEDS: VITAMIN D 1,000 INTERNATIONAL UNITS TABLET PO SCH (09:41)
[2019-01-31] MEDS: ASCORBIC ACID 500 MG TAB PO SCH ×3 (09:42→20:19)
[2019-01-31] MEDS: OMEPRAZOLE 20 MG CAP PO SCH (09:42)
[2019-01-31 14:00] VITALS: BP 182/91
--- NOTE | 2019-01-31 14:21 | REP ---
MR CERVICAL SPINE WITHOUT CONTRAST: HISTORY: Cervical spine surgery. COMPARISON: CT neck 10/18/2017. A disc bulge is present at the C3-4 level. There is mild effacement of the thecal sac without spinal cord compression. The C3 neural foramina are patent. The patient is status post C3 to C7 posterior spinal fusion. Metal hardware is present. Bilateral uncinate process hypertrophy is present at the C5-6 level. This produces mild and minimal narrowing of the right and left C5 neural foramina respectively. A disc bulge is present at the C6-7 level. There is minimal effacement of the thecal sac without spinal cord compression. Bilateral uncinate process hypertrophy is present. This produces minimal narrowing of the C6 neural foramina. There is no other disc bulge or herniation. The remaining neural foramina are patent. There are fractures of the C4 through C6 vertebral bodies with mild to moderate height loss. Decreased and mixed iso- and slightly increased signal intensity on T2-weighted images are present in the vertebral bodies. Heterogeneous increased signal intensity is present in the STIR images. This likely represents degenerative change. The C3-4 and C6-7 intervertebral discs are decreased in height consistent with disc degeneration. The spinal cord is normal in signal intensity. There is loss of the normal lordotic curve. Increased kyphosis is present. A 1.3 cm fluid collection with air fluid level is present in the prevertebral soft tissue at C4-5 level. IMPRESSION: 1. The patient is status post C3 to C7 posterior spinal fusion. There is no spinal cord compression. 2. There are compression fractures of the C4 through C6 vertebral bodies with mild to moderate height loss. Increased signal intensity is present in the vertebral bodies. This likely represents degenerative change. 3. There is cervical spondylosis at the C3-4, C5-6, and C6-7 levels. 4. There is a 1.4 cm fluid collection with an air-fluid level in the prevertebral soft tissue at the C4-5 level. An abscess cannot be excluded. Electronically Signed by Joss Zimmer MD 01/31/2019 02:31 P
[2019-01-31] MEDS: NORCO, ANEXSIA 5/325MG TABLET (HYDROcodone/ACETAMINOPHEN) PO PRN ×2 (14:22→22:28)
--- NOTE | 2019-01-31 14:36 | REP ---
CT SACRUM WITHOUT CONTRAST: HISTORY: Fracture. COMPARISON: CT lumbar spine 01/23/2019, MR lumbar spine 01/27/[address] abdomen and pelvis 01/27/2019. There is a fracture of the anterior superior S2 vertebral body. There are bilateral fractures of the S1 and S2 sacral ala. The margins of the sacral ala fractures are slightly sclerotic. There are no other fractures. There is no subluxation. A disc bulge with associated osteophyte formation is present at the L4-5 level. There is hypertrophy of the ligamenta flava and posterior articulating facets. These findings produce moderate central canal stenosis. There is compression of the right L4 nerve in the neural foramen. The left L4 nerve exits the neural foramina without compression. A diffuse disc bulge is present at the L5-S1 level. This abuts the thecal sac. There is hypertrophy of the posterior articulating facets. The L5 nerves exit the neural foramina without compression. IMPRESSION: 1. There are fractures of the anterior superior S2 vertebral body and bilateral S1 and S2 sacral ala. There is no subluxation. 2. Moderate central canal stenosis at the L4-5 level secondary to disc bulge, ligamentous and facet hypertrophy. There is compression of the right L4 nerve in the neural foramen. 3. Diffuse disc bulge at the L5-S1 level. This abuts the thecal sac. Electronically Signed by Joss Zimmer MD 01/31/2019 02:49 P
--- NOTE | 2019-01-31 16:51 | IPNPDOC ---
Text Note Date of Service The patient was seen on 01/31/19. NOTE SUBJECTIVE: Patient is seen and examined in the room today. Patient continues to complain about persistent sacral pain. Sitting still will worsening the pain so she has to move her posture constantly. Denied any loss of sensation of the lower extremities and pelvic area. Denied any fevers or chills. OBJECTIVE: VITAL SIGNS: Listed below. GENERAL: Patient is alert and awake, nonverbal. Communication is performed through writing. HEENT: Tracheal stoma noted in place. CARDIOVASCULAR: Positive S1, S2, regular rate. LUNGS: Clear to auscultation bilaterally. ABDOMEN: Percutaneous endoscopic gastrostomy (PEG) tube in place. Abdomen soft. MUSCULOSKELETAL: Patient was noted to have musculoskeletal deformity on the left upper chest and in the neck area. Tender to palpation on the lower back region. LABORATORY DATA: Listed below. CT angiogram of the chest demonstrated no evidence of pulmonary embolism (PE). Small bilateral pleural effusions, bibasilar consolidation, likely atelectasis versus pneumonia and diffuse edema of the lungs. ASSESSMENT AND PLAN: #. Acute onset of bilateral hip pain and sacral pain with radiation to the lower extremities. - Imagings were done previously in another facility. Findings suggestive of possible osteomyelitis, stress fracture versus possible metastasis. Orthopedic team consulted. Follow up with CT sacrum and MRI of cervical spine. - PET performed on 12/15/2018, and results are reviewed. - Patient does have a history of osteomyelitis of the neck region, resulting in cervical spine surgery. #. History of laryngeal cancer and ovarian cancer, - status post chemoradiation therapy, status post tracheostomy, now with a stom a. Percutaneous endoscopic gastrostomy (PEG) tube in place. Patient had a skin graft and muscle harvesting for tracheal reconstruction. Patient also had an oophorectomy. - Currently, patient is following with Dr. Cummins in the outpatient setting. Per most recent office note, patient is in remission. #. Hypothyroidism, on Synthroid. #. Anxiety/depression, on Wellbutrin, amitriptyline. Continue to monitor. #. Deep vein thrombosis (DVT) prophylaxis, on heparin. VS,Fishbone, I+O VS, Fishbone, I+O Laboratory Tests 01/31/19 07:22 Red Blood Count 3.93 L, Mean Corpuscular Volume 86.3, Mean Corpuscular Hemoglobin 26.7 L, Mean Corpuscular Hemoglobin Concent 31.0 L, Red Cell Distribution Width 14.2, Calcium Level 6.5 L Vital Signs Date Time Temp Pulse Resp B/P (MAP) Pulse Ox O2 Delivery O2 Flow Rate FiO2 01/31/19 16:10 18 01/31/19 14:00 98.3 84 182/91 (121) 91 01/31/19 09:45 5.0 I&O- Last 24 Hours up to 6 AM 01/31/19 06:00 Intake Total 320 ml Output Total 1650 ml Balance -1330 ml RON BELTRAN DO Jan 31, 2019 16:51
--- NOTE | 2019-01-31 16:52 | CR ---
DATE OF CONSULTATION: 01/31/2019 Review of imaging studies, outside imaging studies as well as a CT of the neck that was done on 10/18/2018, outside imaging studies the abdomen and pelvis, PET scan and other imaging. Those were reviewed with Dr. Zimmer and Dr. Patel, radiology. On the CT scan of the neck it is appreciated that the patient has significant possibly chronic appearing compression deformity at C5 with significant cervical kyphosis, some compression at C6. Cannot rule out cord signal change on CT of the cervical spine. Recommended by radiology to obtain an MRI with STIR weighted images of the cervical spine to evaluate injury further as well as evaluate cervical spinal stenosis. Imaging studies of the pelvis, a CT scan, along with the MRI, suggests sacral insufficiency fracture, it is difficult to determine the extent of this fracture but on these images I cannot rule out an unstable sacral fracture and it is difficult to determine the degree of sacral spinal stenosis. It is recommended that we obtain a sacral CT scan to evaluate this area further. The patient has had significant operative intervention as well in the cervical area. Will followup on the MRI of the neck as well as the CT scan of the sacrum. I also talked with the hospitalist service with respect of these studies. The hospitalist service will order those studies. I talked to the hospitalist service with respect to potential management of the cervical spine condition and if surgical management is indicated, this could be a considerably complicated intervention, it might be best accomplished a tertiary care center with spinal reconstruction. Likewise with respect to the sacrum, if we appreciate an H-type sacral fracture that could reflect instability in the sacrum, that is also a condition that would likely be managed at a tertiary center with spinal reconstructive potential interventions for this patient with multiple medical comorbidities. We will await the results of the additional imaging, MRI of cervical spine and CT scan of the sacrum.
--- NOTE | 2019-01-31 18:25 | CR ---
DATE OF CONSULTATION: 01/31/2019 CHIEF COMPLAINT: The patient complains of pain in the low back when she stands goes down her leg. HISTORY: This is a 64-year-old woman with a complex medical history. This includes laryngeal cancer, laryngeal resection, cervical spinal infection, apparently anteriorly, previous posterior decompression and fusion and potential infection issues with that intervention done in [place] who is being followed at [place] for that issue, who according to the patient ,who is nonverbal, her who is present but unclear on her history and a telephone conversation that I had with her daughter, Clarita, had at least a couple of weeks of pain in the back that became significantly worse when trying to stand, was not able to stand around last Friday, went to [facility] where she had an evaluation and subsequently was transferred to [facility] for further evaluation and subsequently was sent to [facility] when bed in [place] were not available. While at [facility], a Dodd catheter was placed because of a distended bladder, although the patient indicates or denies that she has any numbness around the saddle or vaginal area and she denies that she has any fecal incontinence. She is in little pain when resting in bed and the head of the bed is at 45 degrees. However, she reports that when she tries to get out of bed she gets pain radiating to the buttocks and down the back of the legs. Her cancer history dates back to about 2010 with surgeries, then she had to have an emergency tracheotomy in 2014, some sort of the laryngectomy in 2016 and esophageal reconstruction in 2017 and problems with osteomyelitis and collapse of the anterior cervical spine around that time frame with the posterior cervical intervention. She has had chemoradiation and other issues. She has got a percutaneous endoscopic gastrostomy tube. I reviewed the admission note by Dr. Trinh. MEDICAL HISTORY: See history of present illness. Likely also includes osteoporosis and possible malnutrition. SURGICAL HISTORY: Included the cervical spinal surgery in addition to the laryngeal surgery. She has also had an oophorectomy and abdominal surgery and other issues. ALLERGIES: No known drug allergies. MEDICATIONS AT HOME: Reviewed via hospitalist notes. SOCIAL HISTORY: She lives with her , is a former smoker, does not currently smoke or drink alcoholic beverages. FAMILY HISTORY: Noncontributory. 12-point review of systems was extremely difficult to complete because the patient is not verbal, but she voices no complaints other than the back pain when she tries to get out of the bed, currently and also her chronic neck pain which she indicates as unchanged and has been longstanding. The patient on examination is alert, oriented and cooperative. Mood and affect are appropriate. She appears to be comfortable and not in distress and bed. She is able to roll a bit. She does not have clonus. She does appreciate light touch in extremities. There is a Dodd catheter. IMAGING STUDIES: I reviewed a number of imaging studies with radiology. I also dictated previously on this. I also reviewed her more recent imaging studies, which include a cervical spine Magnetic Resonance Imaging (MRI), which did not seem to reflect an acute process, as well as her sacral CT scan which confirms sacral body fracture at S1-2 that also extends into the sacral ala was some sclerosis at the alar components and some elements of spinal stenosis at the C1-2 junction, some angular kyphotic deformity at the C1-2 level at the sacrum. I also reviewed results of the PET scan with radiology. Radiology does not feel that this fracture is likely metastatic and they also did not feel that it is likely infectious. IMPRESSION: My impression is that the patient has a sacral insufficiency fracture with extension into the sacral ala. RECOMMENDATIONS: She is in a complex situation. This may be an unstable fracture in terms of her inability to bear weight, putting a flexion moment through the sacrum probably when she does so. I have attempted to reach out to [facility] to talked to her spinal surgeon and will have the discussion with him with respect to different management options from his perspective and her perspective; in short management options could be palliative care and bed rest until she is not tender versus surgical interventions, which could involve significant perioperative stress; however, could provide significant stability. I explained this as best I could to the patient, her , as well as her daughter on the telephone and I also discussed the patient's situation with our hospitalist eriberto. For further details, please refer to the medical record. I spent approximately 90 to 100 minutes on this episode of care; more than half of that involved [id number] time with the patient in discussion and coordination of her situation, as well as discussion via telephone conference with her daughter.
[2019-01-31] MEDS: AMITRIPTYLINE 50 MG TAB PO SCH (20:19)
[2019-01-31 22:00] VITALS: BP 102/57
[2019-02-01] MEDS: HumaLOG INSULIN (NovoLOG) PER UNIT SC SCH ×4 (00:52→17:43)
[2019-02-01] MEDS: dexameTHASONE 4 MG/ML 1ML VIAL (J1100) IV SCH ×3 (02:06→17:42)
[2019-02-01 06:00] VITALS: BP 180/64
[2019-02-01 06:24] LABS: HEMATOCRIT 36.9 % (36.0-47.0); HEMOGLOBIN 11.5 g/dl (12.0-15.5); MEAN CORPUSCULAR HEMOGLOBIN 26.5 pg (27.0-33.0); MEAN CORPUSCULAR HGB CONC 31.2 g/dl (32.0-36.5); PLATELET COUNT, AUTOMATED 313 10^3/uL (150-450); RED BLOOD COUNT 4.34 10^6/uL (4.00-5.40); WHITE BLOOD COUNT 7.4 10^3/uL (4.0-10.0)
[2019-02-01 06:43] LABS: BLOOD UREA NITROGEN 19 MG/DL (7-18); C REACTIVE PROTEIN QUANTITATIV 1.73 MG/DL (0.00-0.30); CALCIUM LEVEL 6.9 MG/DL (8.8-10.2); CARBON DIOXIDE LEVEL 24 MEQ/L (21-32); CHLORIDE LEVEL 111 MEQ/L (98-107); CREATININE FOR GFR 0.98 MG/DL (0.55-1.30); GLOMERULAR FILTRATION RATE > 60.0 (>45); GLUCOSE, FASTING 108 MG/DL (70-100); POTASSIUM SERUM 4.1 MEQ/L (3.5-5.1); SODIUM LEVEL 141 MEQ/L (136-145)
[2019-02-01] MEDS: MORPHINE 4 MG/ML 1ML VIAL/SYRINGE (J2270) IV PRN ×4 (07:03→20:27)
[2019-02-01] MEDS: HEPARIN SOD (PORCINE) 5000 UNITS/ML VIAL SC SCH ×3 (07:03→22:00)
[2019-02-01] MEDS: LEVOTHYROXINE 100MCG TABLET (0.1MG) PO SCH (07:03)
[2019-02-01] MEDS: buPROPion 75 MG TAB PO SCH ×2 (09:44→20:26)
[2019-02-01] MEDS: CALCITRIOL 0.25 MCG CAP (S0169) PO SCH (09:44)
[2019-02-01] MEDS: VITAMIN D 1,000 INTERNATIONAL UNITS TABLET PO SCH (09:44)
[2019-02-01] MEDS: OMEPRAZOLE 20 MG CAP PO SCH (09:44)
[2019-02-01] MEDS: ASCORBIC ACID 500 MG TAB PO SCH ×3 (09:44→20:26)
[2019-02-01] MEDS: SUCRALFATE 1 GM TAB PO SCH ×4 (09:44→20:26)
[2019-02-01] MEDS: ASPIRIN 81 MG CHEW TABLET PO SCH (09:44)
[2019-02-01] MEDS: NORCO, ANEXSIA 5/325MG TABLET (HYDROcodone/ACETAMINOPHEN) PO PRN (10:03)
[2019-02-01 14:00] VITALS: BP 105/66
--- NOTE | 2019-02-01 15:03 | REP ---
Three-phase bone scan lumbosacral region. History: Check for osteomyelitis. History of bilateral hip pain. With a couple of falls. History of malignancy of the throat treated with radiation and chemotherapy. Technique: 22.0 mCi technetium 99m MDP is injected and standard three-phase imaging was acquired. Scintigraphic findings: Anterior and posterior flow study of the mid abdomen, pelvis and lumbosacral spine region is unremarkable. Blood pool and delayed scan images demonstrate an area of increased uptake in and about the left sacrum and left sacroiliac joint region. This is a roughly vertical orientation in the upper sacrum on the left. This corresponds to the left-sided upper sacral fracture. The CT study shows a variant irregularity of the sacroiliac joint with hypertrophy and some of the uptake may correspond with this as well. There is minimally increased uptake in the right upper sacrum. Sacral insufficiency fractures should be suspected bilaterally. Incidental note is made of linearly aligned multifocal healing rib fractures bilaterally anteriorly and on the right posteriorly. Lastly there is a horizontally oriented area of uptake in the mid thoracic spine at what appears to be T8 consistent with a healing osteoporotic wedge compression fracture deformity at T8. This corresponds with CT findings from January 30, 2019. Impression: Multiple healing fractures in the T8 vertebral body, multiple bilateral anterior and posterior ribs. The pattern in the sacrum, left more so than right consistent with sacral insufficiency fracture and possibly degenerative change in the left SI joint as seen on recent CT. Electronically Signed by Marcos Fisher MD 02/01/2019 04:53 P
--- NOTE | 2019-02-01 17:34 | NUR ---
Clinician swallow assessment was limited due to altered anatomy. ST recommends patient Sit up as much as possible during PO intake for gravity assist. Pureed diet w/thin liquids. Crushed medication in ice cream per patient request. Patient reported her favorite foods are mashed potatoes with gravy, ice cream, jello, soup and cream of wheat. There is no concern w/aspiration due to laryngectomy. No further dysphagia therapy required at this time. Addendum: 02/01/19 at 1736 by BENITO RASHID Amended: Links added.
--- NOTE | 2019-02-01 19:30 | IPN ---
DATE: 02/01/2019 The patient was seen today. I also talked with Dr. Shea, since I had seen her last, in [place]. Dr. Shea is willing to accept the patient in transfer to consider further intervention, such as lumbo-iliosacral fusion. For that consideration, she would have to be in [place]. I will coordinate with the hospitalist, arrange for the transfer. I also spent about 15 minutes together today with the patient, her daughter and her explaining the plan and also ensuring the patient would still want to consider an operative intervention, which she does. For further details, please refer to the medical record.
[2019-02-01] MEDS: AMITRIPTYLINE 50 MG TAB PO SCH (20:26)
--- NOTE | 2019-02-01 20:44 | IPNPDOC ---
Text Note Date of Service The patient was seen on 02/01/19. NOTE SUBJECTIVE: Patient is seen and examined in the room today. Patient complains about persistent sacral pain with pain radiating to lower extremity. Denied any loss of sensation of the lower extremities and pelvic area. Denied any fevers or chills. OBJECTIVE: VITAL SIGNS: Listed below. GENERAL: Patient is alert and awake, nonverbal. Communication is performed through writing. HEENT: Tracheal stoma noted in place. CARDIOVASCULAR: Positive S1, S2, regular rate. LUNGS: Clear to auscultation bilaterally. ABDOMEN: Percutaneous endoscopic gastrostomy (PEG) tube in place. Abdomen soft. MUSCULOSKELETAL: Patient was noted to have musculoskeletal deformity on the left upper chest and in the neck area. Tender to palpation on the lower back region. LABORATORY DATA: Listed below. CT angiogram of the chest demonstrated no evidence of pulmonary embolism (PE). Small bilateral pleural effusions, bibasilar consolidation, likely atelectasis versus pneumonia and diffuse edema of the lungs. PET (12/15/18): Mildly hypermetabolic uptake in the hypopharynx which may be postsurgical change. No mass effect or adenopathy is seen. Multiple right-sided rib fractures noted including two recent posterior rib fractures on the right. No abnormal hypermetabolic uptake is seen in the chest. ASSESSMENT AND PLAN: #. Acute onset of bilateral hip pain and sacral pain with radiation to the lower extremities. - Imagines were done previously in another facilities. Findings suggestive of possible osteomyelitis, stress fracture versus possible metastasis. Orthopedic team consulted. Follow up with CT sacrum and MRI of cervical spine. - PET performed on 12/15/2018. - Patient did have a history of osteomyelitis of the neck region in the past, resulting in cervical spine surgery. - Patient has sacral insufficiency fracture with extension into the sacral ala. Transfer is recommended. Dr. Shea was contacted by orthopedic team and he will be accepting physician. In process contacting [facility] to arrange transfer. Dr. Shea is not front attendant at this moment. #. History of laryngeal cancer and ovarian cancer, - status post chemoradiation therapy, status post tracheostomy, now with a stoma. Percutaneous endoscopic gastrostomy (PEG) tube in place. Patient had a skin graft and muscle harvesting for tracheal reconstruction. Patient also had an oophorectomy. - Currently, patient is following with Dr. Cummins in the outpatient setting. Per most recent office note, patient is in remission. #. Hypothyroidism, on Synthroid. #. Anxiety/depression, on Wellbutrin, amitriptyline. Continue to monitor. #. Deep vein thrombosis (DVT) prophylaxis, on heparin. VS,Fishbone, I+O VS, Fishbone, I+O Laboratory Tests 02/01/19 05:57 Red Blood Count 4.34, Mean Corpuscular Volume 85.0, Mean Corpuscular Hemoglobin 26.5 L, Mean Corpuscular Hemoglobin Concent 31.2 L, Red Cell Distribution Width 14.2, Calcium Level 6.9 L Vital Signs Date Time Temp Pulse Resp B/P (MAP) Pulse Ox O2 Delivery O2 Flow Rate FiO2 02/01/19 20:27 19 02/01/19 14:00 99.0 94 105/66 (79) 92 5.0 I&O- Last 24 Hours up to 6 AM 02/01/19 06:00 Intake Total 1400 ml Output Total 2350 ml Balance -950 ml RON BELTRAN DO Feb 01, 2019 20:44
[2019-02-01 22:00] VITALS: BP 118/69
--- NOTE | 2019-02-01 22:28 | DSES ---
DATE OF ADMISSION: 01/29/2019 DATE OF DISCHARGE/TRANSFER: 02/01/2019 ACCEPTING FACILITY: [facility] ACCEPTING PHYSICIAN: Dr. Valderrama DISCHARGE DIAGNOSES: 1. Sacral insufficiency fracture with extension into the sacral ala. 2. History of laryngeal cancer and ovarian cancer, status post chemoradiation, status post tracheostomy with stoma. Status post percutaneous endoscopic gastrostomy (PEG) tube placement. Status post tracheal reconstruction. 3. Hypothyroidism. 4. Anxiety/depression. 5. Chronic obstructive pulmonary disease (COPD). HOSPITALIZATION COURSE: The patient is a 64-year-old female with acute sacral and lower back pain with radiation to the lower extremities, originally presented to [facility]. Patient seen to have acute trauma where she had a very hard landing on a chair or sofa significantly causing difficulty getting out of bed, patient sought medical evaluation. MRI was performed at [facility]. The patient was shown to have L4-L5 disc herniation, edema in the bone marrow of the sacrum. Differential at the time included osteomyelitis versus stress fracture versus metastatic disease. Later, the patient was transferred to [facility] and later patient was transferred to [facility] for hematology/oncology and orthopedic surgery service. Empirically, patient started on vancomycin on admission for possible osteomyelitis. Orthopedic team consulted. Repeat imaging study was obtained. It was determined the patient had a sacral insufficiency fracture with extension into the sacral ala. Due to complexity of the patient's fracture and medical condition, orthopedic surgery reached out to other orthopedic spine surgeon in the [place] area. Later, the case was discussed with Dr. Shea who was willing to accept the transfer, then transfer process initiated. Later, the patient's family was contacted prior to transfer. Most recent vital signs: Temperature 99 degrees, pulse is 94, respirations 20, blood pressure is 105/66, oxygen saturation is 92% with five liters of oxygen brought through the stoma. Most recent laboratory data showed WBC 7.4, hemoglobin 11.5, hematocrit 36.9, platelet count is 313. Sodium 141, potassium 4.1, chloride 111, carbon dioxide is 24, BUN 19, creatinine 0.98, GFR greater than 60, fasting glucose 108, calcium 6.9, C-reactive protein is 1.73. Laboratory data on the day of admission showed WBC 9.4, hemoglobin 10.3, hematocrit 33.3, platelet count is 278, ESR 65. Sodium 145, potassium 4.1, chloride 117, carbon dioxide 22, BUN 20, creatinine 1.03, GFR 57.3, fasting glucose 109, calcium 6, total bilirubin 0.3, AST 46, ALT 39, alkaline phosphatase 107, troponin I less than 0.02, C-reactive protein 6.6, total protein 6, albumin 2.5, TSH 0.136. Microbiology: Blood culture from 01/29/2019 showed no growth after 48 hours. IMAGING STUDIES: CT angiogram of the chest showed no evidence of pulmonary embolism (PE). Small bilateral pleural effusion, bibasilar consolidation, likely atelectasis versus pneumonia and diffuse edema of the lung. CT of the pelvis without contrast: Fracture of the anterior superior S2 vertebral body and bilateral S1 and S2 sacral ala. There is no subluxation. Moderate central canal stenosis at L4-5 level secondary to disc bulge, ligamentous and facet hypertrophy. There is compression of the right L4 nerve of the neural foramen. Diffuse disc bulge at the L5-S1 level. MRI cervical spine without contrast showed status post C3 through C7 posterior spinal fusion. No spinal cord compression. Compression fracture of C4 through C6 vertebral body with mild to moderate height loss. Increased signal intensity is present in the vertebral bodies. This likely represents degenerative change. There is cervical spondylosis at C3-4, C5-6, and C6-7 level. A 1.4 cm fluid collection with air fluid level in the prevertebral soft tissue at the C4-5 level. An abscess cannot be excluded. Bone barbosa on 02/01/2019 showed multiple healing fractures in the T8 vertebral body, multiple bilateral anterior and posterior ribs. The pattern in the sacrum, left more so than right consistent with sacral insufficiency fracture and possibly degenerative change in the left SI joint. DISCHARGE INSTRUCTIONS: Patient will be transferred to [facility] by ambulance. DISCHARGE TIME INCLUDING COORDINATION OF THE CARE: Greater than 30 minutes. DISCHARGE CONDITION: Fair. edited: 02/02/2019 0738 tkf KERMIT
[2019-02-01 22:53] VITALS: BP 142/83
== END 2019-02-01 22:55 | disposition short-term general hospital (02) | DRG 544 ==
LOC: M MS5PR 21:58
PROVIDERS: ADMIT Internal Medicine; ATTEND Internal Medicine
DX: M48.48XA Fatigue fracture of vertebra, sacral and sacrococcygeal region, initial encounter for fracture (principal); E03.9 Hypothyroidism, unspecified; F41.9 Anxiety disorder, unspecified; J45.909 Unspecified asthma, uncomplicated; J44.9 Chronic obstructive pulmonary disease, unspecified; R09.02 Hypoxemia; K21.9 Gastro-esophageal reflux disease without esophagitis; F32.9 Major depressive disorder, single episode, unspecified; Z85.818 Personal history of malignant neoplasm of other sites of lip, oral cavity, and pharynx; Z92.21 Personal history of antineoplastic chemotherapy; Z92.3 Personal history of irradiation; Z93.1 Gastrostomy status; Z85.43 Personal history of malignant neoplasm of ovary; Z79.891 Long term (current) use of opiate analgesic; Z79.899 Other long term (current) drug therapy; Z87.891 Personal history of nicotine dependence; M54.5 Low back pain; M81.0 Age-related osteoporosis without current pathological fracture; Z98.1 Arthrodesis status

== ENCOUNTER → 2019-12-18 | Outpatient (REF) | payer MEDICARE ==
[~2019-12-18] MED LIST changes: +ACET1TAB55 PO; +AK-T0.3S; +AMIT50TA PO; +ASPI-523 GT; -ASPI1TAB PO; +ASPI81TA26 PO; +ASPI81TA85 PO; +CALC1CAP31 PO; +CALC500C16 PO; +CLON-412 PO; +CORT5TAB2 PO; +CYCL10TA PO; +DOXY100C PO; +FERR1ELX PO; -FERR220L PO; +FLUD0.1T PO; +GABA-1171 PO; +GABA-845 PO; +HYDR-4327 PO; +HYDR12CA PO; +HYDR1CRE89 TOP; +HYDR1SOL PO; -HYDR5TAB59 PO; +IPRA0.00 NEB; +KETO0.3S; +LIDO2.5C15 TOP; +LIDO2JELLY TOP; +MAGN400C2 PO; +MIRA3350 PO; +OMEP1CAP73 PO; -OMEP20CA3 PO; +PREDOPD; +SERT-138 PO; +SERT-141 GT; -SERT50TA GT; +SUCR1TAB56 PO; +VITA100066 PO; +VITA500079 PO; -[UNRECOGNIZED DRUG - CODE] GT; +[UNRECOGNIZED DRUG - CODE] PO
== END ==
LOC: M LAB REF 17:59
PROVIDERS: ATTEND Internal Medicine Hematology & Oncology
DX: C32.9 Malignant neoplasm of larynx, unspecified (principal); C79.60 Secondary malignant neoplasm of unspecified ovary

== ENCOUNTER → 2020-01-11 | Outpatient (CLI) | payer MEDICARE ==
--- NOTE | 2020-01-11 13:38 | REP ---
Low-dose lung screening CT of the chest: The study is performed without IV contrast. The images are presented at lung windowing only. There are no lung nodules or masses. There is a 4 mm calcified granuloma, pleural-based, in the medial basilar segment right lower lobe on image 75. This is unchanged from a prior chest CT dated 12/08/2013. On another prior study dated 01/30/2019, there were small bilateral pleural effusions. These are no longer present. There are no infiltrates. Impression: Category II low-dose lung screening CT of the chest. The probability of malignancy is less than 1%. Depending on risk factors consider annual follow-up low-dose lung screening CT Electronically Signed by Elias Patel MD 01/11/2020 01:29 P
== END ==
LOC: M RAD 10:30
PROVIDERS: ATTEND Internal Medicine Hematology & Oncology
DX: Z87.891 Personal history of nicotine dependence (principal)

== ENCOUNTER → 2022-02-06 | Outpatient (CLI) | payer MEDICARE ==
[~2022-02-06] MED LIST changes: -ASPI81TA85 PO; +ASPI81TA86 PO; +CYCL-707 PO; -CYCL10TA PO; -DOXY100C PO; +DOXY100C3 PO; +GABA-283 PO; -GABA-845 PO; -HYDR-4327 PO; +HYDR-4467 PO; +LIDO1CRE42 TOP; -LIDO2.5C15 TOP; -PEG1POW PO; +POLY17PO18 PO
== END ==
LOC: M RAD 09:45
PROVIDERS: ATTEND Internal Medicine Hematology & Oncology
DX: C76.0 Malignant neoplasm of head, face and neck (principal)

== ENCOUNTER → 2022-03-27 | Outpatient (CLI) | payer MEDICARE ==
[~2022-03-27] MED LIST changes: +B-122500 PO; +CEPHALEXIN; +ECOT81TA5 PO; +FAMO40TA3; +ISOVUE-370 76% 100ML VIAL ONE; +VITALIQ27 MC; +ZOLO100T PO
== END ==
LOC: M PLAIMG 09:45
PROVIDERS: ATTEND Otolaryngology
DX: J95.03 Malfunction of tracheostomy stoma (principal)
CPT/HCPCS: 70491; Q9967

== ENCOUNTER → 2024-04-02 | Outpatient (CLI) | payer MEDICARE ==
[~2024-04-02] MED LIST changes: -AK-T0.3S; +AMLO1TAB25; +DORZ2SOL5 OP; +FERR325T3 PO; -GABA-283 PO; +GABA-284 PO; +ISOVUE-370 76% 100ML VIAL As Ordered ONE; -ISOVUE-370 76% 100ML VIAL ONE; +LEVO112T2; -LIDO1CRE42 TOP; +LIDO30CR18 TOP; +TOBR0.3S30; +VITA500C24 PO
== END ==
LOC: M RAD 07:33
PROVIDERS: ATTEND Otolaryngology Plastic Surgery within the Head & Neck
DX: C76.0 Malignant neoplasm of head, face and neck (principal); Z92.3 Personal history of irradiation; Z92.21 Personal history of antineoplastic chemotherapy; Z90.02 Acquired absence of larynx
CPT/HCPCS: 70491; 70498; Q9967